=== PATIENT | male | born 1995 | race Caucasian/White ===

== ENCOUNTER 2023-12-06 05:47 | Observation (INO) ==
[2023-12-06 06:30] LABS: Basophils # (auto) 0.05 K/uL (0.00-0.20); Basophils % (auto) 0.3 %; Eosinophils # (auto) 0.05 K/uL (0.00-0.50); Eosinophils % (auto) 0.3 %; Hematocrit (blood only) 49.1 % (42.0-52.0); Hemoglobin 17.1 g/dl (14.0-18.0); Immature Granulocytes % (auto) 0.6 %; Lymphocytes # (auto) 0.84 K/uL (1.20-3.40); Lymphocytes % (auto) 4.9 %; Mean Corpuscular Hemoglobin 29.6 pg (25.0-34.0); Mean Corpuscular Hgb Conc 34.8 g/dL (32.0-36.0); Mean Corpuscular Volume 84.9 fL (80.0-100.0); Mean Platelet Volume 10.6 fL (9.4-12.4); Monocytes # (auto) 1.19 K/uL (0.11-0.59); Monocytes % (auto) 6.9 %; Platelet Count 273 K/uL (130-400); RDW Coefficient of Variation 13.2 % (11.5-14.5); RDW Standard Deviation 41.1 fL (36.4-46.3); Red Blood Count 5.78 M/uL (4.70-6.10); White Blood Count 17.13 K/ul (4.8-10.8)
[2023-12-06] MEDS: ONDANSETRON INJ 2 MG/ML 2 ML VIAL IV STA ×2 (06:34→12:45)
[2023-12-06] MEDS: KETOROLAC TROMETHAMINE 15 MG/ML VIAL IV ONE (06:34)
[2023-12-06 06:35] LABS: Appearance Urine Turbid (Clear); Bacteria Urine Automated None Seen (None Seen); Bilirubin Urine Negative (Negative); Blood Urine Negative (Negative); Cast Urine Automated 0-2 /lpf (0-2); Color Urine Yellow; Epithelial Cell Urine Auto 0-2 /hpf (0-2); Glucose Urine UA Negative (Negative); Ketones Urine Negative (Negative); Leukocyte Esterase Urine Negative (Negative); Nitrite Urine Negative (Negative); Protein Urine Negative (Negative); Specific Gravity Urine 1.015 (1.000-1.030); Urobilinogen Urine Negative (Negative); WBC Urine Automated 0-5 /hpf (0-5); pH Urine >= 9.0 (4.5-7.5)
[2023-12-06] MEDS: SODIUM CHLORIDE 0.9% 1,000 ML IV ONE ×2 (06:35→19:01)
[2023-12-06] MEDS: HYDROmorphone INJ 0.5 MG/0.5 ML SYR IV STA ×3 (06:41→12:45)
[2023-12-06 06:49] LABS: Albumin Globulin Ratio 1.9 (0.9-2); Albumin Level 5.3 gm/dl (3.4-5.0); BUN Creatinine Ratio 15.8 (10-20); Bilirubin,Total 1.1 mg/dl (0.2-1.0); Calcium 10.3 mg/dl (8.6-10.3); Creatinine Clr Calc Pharmacy 106.9 ml/min; Est GFR (African American) 115.1 ml/min; Est GFR (Non-African American) 99.3 ml/min; Globulin 2.8 gm/dl (2.5-4.0); Total Protein 8.1 gm/dl (6.0-8.3)
--- NOTE | 2023-12-06 07:14 | Emergency Department Note ---
Impression & Plan Acute appendicitis ED Provider Note CHIEF COMPLAINT: Abdominal pain HISTORY OF PRESENT ILLNESS: This 28-year-old male patient with past medical history of seasonal allergies, mood disorder presents emergency department with complaints of right lower abdominal pain that radiates into the flank. He is concerned about the level of pain that he is having. He thought maybe he was constipated and took some laxatives yesterday. He does not feel that he can defecate but does have the urge. Patient denies any difficulty with urination. He states the pain comes and goes. He denies fever and vomiting. REVIEW OF SYSTEMS: A review of systems was performed with positives and pertinent negatives listed in the history of present illness. 10 systems were reviewed and are otherwise negative. ALLERGIES: see below MEDICATIONS: see below PMH: see below SOCIAL HISTORY: see below DDx: Diverticulitis, appendicitis, kidney stone, UTI, pyelonephritis among others. PHYSICAL EXAM: Vital signs reviewed. General: Well-appearing 28-year-old male, in no significant distress. HEENT: No scleral icterus, PERRLA, neck supple. Moist mucous membranes. Cardiovascular: Regular rate and rhythm, no extra sounds. Pulmonary: Clear to auscultation bilaterally, normal work of breathing. Abdomen: Soft, mild tenderness to palpation of the right lower quadrant, no rebound or guarding, nondistended, positive bowel sounds. Minimal CVA tenderness bilaterally. Musculoskeletal: Atraumatic, no peripheral edema. Neurologic: Patient awake alert and oriented x 3, speech is clear Skin: Warm, dry, no rash EMERGENCY DEPARTMENT COURSE/MDM: This patient was evaluated and appeared to be in no significant distress. IV access was obtained and laboratory work was drawn. The patient was placed on the surveillance monitor noted to be in a normal sinus rhythm. Laboratory work indicates a leukocytosis of 17. UA reveals trace RBCs. There is no evidence of infection. CT imaging of the abdomen pelvis is consistent with a severe appendicitis. Patient was medicated with IV Zosyn and general surgery was contacted. Patient is aware of the plan and agrees. MONITORING: An order for cardiac monitoring was placed and the patient is noted to be in a normal sinus rhythm at 86 beats per minute. RADIOLOGY: CT imaging of the abdomen pelvis per radiology is consistent with severe appendicitis without perforation. DISPOSITION: Home Past Med/Surg History Social History Smoking Status: Current every day smoker Tobacco Type: Smokeless Tobacco (Dip or Chew) Preferred Language: Yemeni Feels Safe at Home: Yes Allergies Allergies Allergy/AdvReac Type Severity Reaction Status Date / Time No Known Allergies Allergy Verified 12/06/23 06:13 Home Meds Home Medications Medication Instructions Recorded Confirmed cetirizine 10 mg tablet (Zyrtec) 10 mg PO QAM 12/06/23 12/06/23 citalopram 10 mg tablet 10 mg PO QAM 12/06/23 12/06/23 kgzejwvx-pbdhrpek-gwxhk acid 400 1 tab PO QAM 12/06/23 12/06/23 mcg-vit K 20 mcg-lycop 300 mcg tablet Results & Data (ED) Vital Signs Vital Signs - 24 hr 12/06/23 05:55 12/06/23 06:09 12/06/23 06:38 Temperature 36.8 C Temperature Source Temporal Artery Scan Pulse Rate 62 65 Pulse Rate [Apical] 60 Pulse Rate from SpO2 Sensor Pulse Rhythm [Apical] Regular Pulse Strength [Apical] Normal Respiratory Rate 18 19 Respiratory Effort / Characteristics Non-Labored Spontaneous Non-Labored Spontaneous Respiratory Depth Normal Normal Respiratory Pattern Regular Regular Blood Pressure 148/99 H Blood Pressure [Left Arm] 134/91 Blood Pressure Mean 115 Blood Pressure Mean [Left Arm] 105 Blood Pressure Position [Left Arm] Sitting Pulse Oximetry 100 97 Oxygen Delivery Method Room Air Room Air Sepsis Recent Fever Within 48 Hours No Sepsis New/Unexplained Change in Mental Status N/A Sepsis Action Taken by Nursing No Action Required 12/06/23 07:08 12/06/23 07:30 12/06/23 08:00 Temperature Temperature Source Pulse Rate 64 64 56 L Pulse Rate [Apical] Pulse Rate from SpO2 Sensor 63 56 L Pulse Rhythm [Apical] Pulse Strength [Apical] Respiratory Rate 18 19 17 Respiratory Effort / Characteristics Respiratory Depth Respiratory Pattern Blood Pressure 131/82 132/83 130/77 Blood Pressure [Left Arm] Blood Pressure Mean 98 99 94 Blood Pressure Mean [Left Arm] Blood Pressure Position [Left Arm] Pulse Oximetry 100 100 100 Oxygen Delivery Method Room Air Room Air Room Air Sepsis Recent Fever Within 48 Hours Sepsis New/Unexplained Change in Mental Status Sepsis Action Taken by Nursing 12/06/23 08:30 12/06/23 09:00 12/06/23 10:30 Temperature Temperature Source Pulse Rate 56 L 54 L Pulse Rate [Apical] 52 L Pulse Rate from SpO2 Sensor 62 54 L Pulse Rhythm [Apical] Pulse Strength [Apical] Respiratory Rate 12 17 20 Respiratory Effort / Characteristics Non-Labored Spontaneous Respiratory Depth Normal Respiratory Pattern Blood Pressure 124/81 128/75 Blood Pressure [Left Arm] 137/92 Blood Pressure Mean 95 92 Blood Pressure Mean [Left Arm] 107 Blood Pressure Position [Left Arm] Pulse Oximetry 100 99 100 Oxygen Delivery Method Room Air Room Air Room Air Sepsis Recent Fever Within 48 Hours Sepsis New/Unexplained Change in Mental Status Sepsis Action Taken by Nursing 12/06/23 11:15 12/06/23 11:31 Temperature Temperature Source Pulse Rate 63 86 Pulse Rate [Apical] Pulse Rate from SpO2 Sensor Pulse Rhythm [Apical] Pulse Strength [Apical] Respiratory Rate 20 Respiratory Effort / Characteristics Respiratory Depth Respiratory Pattern Blood Pressure 128/85 Blood Pressure [Left Arm] Blood Pressure Mean 99 Blood Pressure Mean [Left Arm] Blood Pressure Position [Left Arm] Pulse Oximetry 99 Oxygen Delivery Method Room Air Sepsis Recent Fever Within 48 Hours Sepsis New/Unexplained Change in Mental Status Sepsis Action Taken by Custodial Medications Current Medication List: was personally reviewed by me Laboratory Data Attestation: I reviewed the patient's lab results. 12/06/23 06:05 12/06/23 06:05 Lab Results 12/06/23 12/06/23 Range/Units 06:00 06:05 WBC 17.13 H (4.8-10.8) K/ul RBC 5.78 (4.70-6.10) M/uL Hgb 17.1 (14.0-18.0) g/dl Hct 49.1 (42.0-52.0) % MCV 84.9 (80.0-100.0) fL MCH 29.6 (25.0-34.0) pg MCHC 34.8 (32.0-36.0) g/dL RDW Std Deviation 41.1 (36.4-46.3) fL RDW Coeff of [place] 13.2 (11.5-14.5) % Plt Count 273 (130-400) K/uL MPV 10.6 (9.4-12.4) fL Immature Gran % (Auto) 0.6 % Neut % (Auto) 87.0 % Lymph % (Auto) 4.9 % [place] % (Auto) 6.9 % Eos % (Auto) 0.3 % Baso % (Auto) 0.3 % Neut # (Auto) 14.90 H (1.40-6.50) K/uL Lymph # (Auto) 0.84 L (1.20-3.40) K/uL [place] # (Auto) 1.19 H (0.11-0.59) K/uL Eos # (Auto) 0.05 (0.00-0.50) K/uL Baso # (Auto) 0.05 (0.00-0.20) K/uL Immature Gran # (Auto) 0.10 (0.01-0.20) K/uL Sodium 140 (136-145) mmol/L Potassium 4.0 (3.5-5.1) mmol/L Chloride 105 (98-107) mmol/L Carbon Dioxide 25 (21-32) mmol/L Anion Gap 10 (3-11) BUN 16 (6-23) mg/dl Creatinine 1.01 (0.6-1.4) mg/dl Est Cr Clr Drug Dosing 106.9 ml/min Est GFR ( Amer) 115.1 ml/min Est GFR (Non-Af Amer) 99.3 ml/min BUN/Creatinine Ratio 15.8 (10-20) Glucose 123 H (70-99(Fasting)) mg/dl Calcium 10.3 (8.6-10.3) mg/dl Total Bilirubin 1.1 H (0.2-1.0) mg/dl AST 26 (13-39) U/L ALT 37 (7-52) U/L Alkaline Phosphatase 111 H (34-104) U/L Total Protein 8.1 (6.0-8.3) gm/dl Albumin 5.3 H (3.4-5.0) gm/dl Globulin 2.8 (2.5-4.0) gm/dl Albumin/Globulin Ratio 1.9 (0.9-2) Lipase 32 (11-82) U/L Urine Color Yellow Urine Appearance Turbid A (Clear) Urine pH >= 9.0 H (4.5-7.5) Ur Specific [place] 1.015 (1.000-1.030) Urine Protein Negative (Negative) Urine Glucose (UA) Negative (Negative) Urine Ketones Negative (Negative) Urine Blood Negative (Negative) Urine Nitrite Negative (Negative) Urine Bilirubin Negative (Negative) Urine Urobilinogen Negative (Negative) Ur Leukocyte Esterase Negative (Negative) Urine WBC (Auto) 0-5 (0-5) /hpf Urine RBC (Auto) 3-5 H (0-2) /hpf U Hyaline Cast (Auto) 0-2 (0-2) /lpf U Epithel Cells (Auto) 0-2 (0-2) /hpf Urine Bacteria (Auto) None Seen (None Seen) Administered Medications Discontinued Medications Hydromorphone HCl (Hydromorphone Inj 0.5 Mg/0.5 Ml Syr) 0.5 mg IV NOW STA Stop: 12/06/23 06:30 Last Admin: 12/06/23 06:41 Dose: 0.5 mg Documented By: VIDAL Hydromorphone HCl (Hydromorphone Inj 0.5 Mg/0.5 Ml Syr) 0.5 mg IV NOW STA Stop: 12/06/23 10:31 Last Admin: 12/06/23 10:43 Dose: 0.5 mg Documented By: АНДРЕЙ Sodium Chloride (Nss) 1,000 mls @ 999 mls/hr IV .Q1H1M ONE Stop: 12/06/23 07:27 Last Infusion: 12/06/23 07:59 Dose: Infused Documented By: АНДРЕЙ Admin: 12/06/23 06:35 Dose: 999 mls/hr Documented By: VIDAL Piperacillin Sod/Tazobactam Sod (Zosyn) 4.5 gm in 100 mls @ 200 mls/hr IV NOW ONE Stop: 12/06/23 08:30 Last Infusion: 12/06/23 08:55 Dose: Infused Documented By: АНДРЕЙ Admin: 12/06/23 08:19 Dose: 200 mls/hr Documented By: АНДРЕЙ Ketorolac Tromethamine (Ketorolac Tromethamine 15 Mg/Ml Vial) 10 mg IV NOW ONE Stop: 12/06/23 06:30 Last Admin: 12/06/23 06:34 Dose: 10 mg Documented By: VIDAL Ondansetron HCl (Ondansetron Inj 2 Mg/Ml 2 Ml Vial) 4 mg IV NOW STA Stop: 12/06/23 06:30 Last Admin: 12/06/23 06:34 Dose: 4 mg Documented By: VIDAL Imaging Data Radiologist's Impression: Abdomen/Pelvis CT 12/06/23 06:29 CT SCAN OF THE ABDOMEN AND PELVIS WITHOUT IV CONTRAST CLINICAL HISTORY: Right flank pain. COMPARISON STUDY: No priors. TECHNIQUE: CT scan of the abdomen and pelvis is performed from the lung bases to the proximal femora. Images are reviewed in the axial, sagittal, and coronal planes. IV contrast was not administered for this examination. A dose lowering technique was utilized adhering to the principles of ALARA. CT DOSE: 722.85 mGy.cm FINDINGS: Lung bases: The heart is normal in size and without pericardial effusion. The lung bases are clear. Liver: The unenhanced liver is normal in size, contour, and attenuation. There is no intrahepatic biliary ductal dilatation. Gallbladder: Unremarkable. Spleen: Normal in size and attenuation. Pancreas: Unremarkable. Adrenal glands: Unremarkable. Kidneys: The unenhanced kidneys are normal in size and without hydronephrosis. There is a 5 mm nonobstructing calculus in the left lower pole. There are 2 punctate nonobstructing calculi in the right lower pole. No ureteral stone is seen. There is no evidence of contour deforming renal mass lesion. Abdominal vasculature: The abdominal aorta is normal in course and caliber. Bowel: No bowel obstruction is seen. The appendix is markedly dilated and fluid-filled, measuring up to 2.5 cm diameter. This is best seen on axial image #236. There is periappendiceal inflammation and fluid consistent with acute appendicitis. There is no clear evidence of perforation. No organized fluid collection is seen to suggest abscess on this unenhanced examination. Calcified appendicoliths are seen at the appendiceal tip. Mild wall thickening of the adjacent ilium is likely reactive. Peritoneum: No intraperitoneal free air is seen. There is a small volume of free fluid in the pelvis. There is a small fat-containing umbilical hernia. Lymphadenopathy: Mildly enlarged right lower quadrant mesenteric lymph nodes measure up to 1.4 cm in length. These are likely reactive. Pelvic viscera: The bladder, prostate, and seminal vesicles are normal as visualized. There is evidence of previous left inguinal herniorrhaphy. Skeletal structures: No lytic or blastic lesions are seen. IMPRESSION: 1. Severe acute appendicitis. 2. There is no evidence of abscess or perforation on this unenhanced examination. 3. Enlarged right lower quadrant mesenteric lymph nodes and free fluid in the pelvis are likely reactive. 4. Bilateral nephrolithiasis. 5. Additional findings as above. ACT 112: Negative or not required by law. Electronically signed by: Eleazar Mcknight M.D. 12/06/2023 7:43 AM Discharge Plan Visit Data Chief Complaint: Abdominal Pain Stated Complaint: ABD PAIN ED Provider: Melyssa Lindsey Discharge Problem: Acute appendicitis Forms Stand Alone Forms: [facility] Prescriptions Prescriptions: No Action cetirizine [Zyrtec] 10 mg Tablet 10 mg PO QAM citalopram 10 mg tablet 10 mg PO QAM Men's Multivitamin 400-20-300 mcg Tablet 1 tab PO QAM Referrals Referrals: Samir Bourne MD [Primary Care Provider] -
--- NOTE | 2023-12-06 07:44 | CT Scan Report ---
CT SCAN OF THE ABDOMEN AND PELVIS WITHOUT IV CONTRAST CLINICAL HISTORY: Right flank pain. COMPARISON STUDY: No priors. TECHNIQUE: CT scan of the abdomen and pelvis is performed from the lung bases to the proximal femora. Images are reviewed in the axial, sagittal, and coronal planes. IV contrast was not administered for this examination. A dose lowering technique was utilized adhering to the principles of ALARA. CT DOSE: 722.85 mGy.cm FINDINGS: Lung bases: The heart is normal in size and without pericardial effusion. The lung bases are clear. Liver: The unenhanced liver is normal in size, contour, and attenuation. There is no intrahepatic layo iary ductal dilatation. Gallbladder: Unremarkable. Spleen: Normal in size and attenuation. Pancreas: Unremarkable. Adrenal glands: Unremarkable. Kidneys: The unenhanced kidneys are normal in size and without hydronephrosis. There is a 5 mm nonobs tructing calculus in the left lower pole. There are 2 punctate nonobstructing calculi in the right lo wer pole. No ureteral stone is seen. There is no evidence of contour deforming renal mass lesion. Abdominal vasculature: The abdominal aorta is normal in course and caliber. Bowel: No bowel obstruction is seen. The appendix is markedly dilated and fluid-filled, measuring up to 2.5 cm diameter. This is best seen on axial image #236. There is periappendiceal inflammation and fluid consistent with acute appendicitis. There is no clear evidence of perforation. No organized fl uid collection is seen to suggest abscess on this unenhanced examination. Calcified appendicoliths ar e seen at the appendiceal tip. Mild wall thickening of the adjacent ilium is likely reactive. Peritoneum: No intraperitoneal free air is seen. There is a small volume of free fluid in the pelvis. There is a small fat-containing umbilical hernia. Lymphadenopathy: Mildly enlarged right lower quadrant mesenteric lymph nodes measure up to 1.4 cm in length. These are likely reactive. Pelvic viscera: The bladder, prostate, and seminal vesicles are normal as visualized. There is eviden ce of previous left inguinal herniorrhaphy. Skeletal structures: No lytic or blastic lesions are seen. IMPRESSION: 1. Severe acute appendicitis. 2. There is no evidence of abscess or perforation on this unenhanced examination. 3. Enlarged right lower quadrant mesenteric lymph nodes and free fluid in the pelvis are likely react tova. 4. Bilateral nephrolithiasis. 5. Additional findings as above. ACT 112: Negative or not required by law. Electronically signed by: Eleazar Mcknight M.D. 12/06/2023 7:43 AM
[2023-12-06] MEDS: PIPERACILLIN/TAZOBACTAM 4.5 GM/100 ML BAG IV ONE (08:19)
--- NOTE | 2023-12-06 09:49 | History & Physical Report ---
Date of Service December 06, 2023 Assessment & Plan (1) Acute appendicitis: Plan: This is a 28yM with no significant PMH who presents to the [facility] ED on 12/06/23 with complaints of abdominal pain that stated yesterday and worsened overnight. Pain mostly located in the RLQ and was associated with nausea/vomiting. Due to symptoms he came into the ER where he underwent a CT a/p that revealed findings concerning for acute appendicitis. WBC 17. Vitals are stable and patient is afebrile. On exam abdomen is soft and TTP in the RLQ. Imaging, history, exam all consistent with acute appendicitis. Discussed options and patient agrees to surgical intervention. Will keep NPO, with IVF, and give pre-op abx. Will plan on laparoscopic appendectomy with Dr. Ramey today. as above. discussed options/risks ( bleeding/infection/blood clots/injury to other organs etc...) questions answered. will proceed with lap appendectomy today. History of Present Illness Primary Care Provider: Samir Bourne MD This is a 28yM with no significant PMH who presents to the [facility] ED on 12/06/23 with complaints of abdominal pain. Patient states his pain started yesterday and he felt like he was constipated. He states the pain worsened throughout the day but that it did not limit him from going to work then coming home to do some yard work. He said it actually went away temporarily, but after eating frozen pizza for dinner around 830pm the pain returned. He states the pain started around his belly button region and has since relocated more so to the RLQ. Severity of pain an 8/10, associated with some nausea and 1x bout of emesis. Due to symptoms he came into the ER where he underwent a CT a/p that revealed findings concerning for acute appendicitis. Patient denies fevers/chills, CP/SOB, or change in bowel habits. He is voiding well. Past surgical history includes and open left inguinal hernia repair. He is suppose to go on a camping trip this wknd. Allergies Allergy/AdvReac Type Severity Reaction Status Date / Time No Known Allergies Allergy Verified 12/06/23 06:13 Home Medications Medication Instructions Recorded Confirmed Type cetirizine 10 mg tablet (Zyrtec) 10 mg PO QAM 12/06/23 12/06/23 History citalopram 10 mg tablet 10 mg PO QAM 12/06/23 12/06/23 History elwtwaiy-zhuxctdx-vilgo acid 400 1 tab PO QAM 12/06/23 12/06/23 History mcg-vit K 20 mcg-lycop 300 mcg tablet Past Med/Surg History Social History Smoking Status: Current every day smoker Tobacco Type: Smokeless Tobacco (Dip or Chew) Preferred Language: Argentine Feels Safe at Home: Yes Review of Systems Constitutional: no fever and no chills Respiratory: no dyspnea Cardiovascular: no chest pain Gastrointestinal: + abdominal pain (RLQ), + nausea and + v omiting; no bloating and no change in bowel habits Genitourinary: no problem reported Physical Exam Physical Exam: awake/alert, no distress Constitutional: well developed and well nourished Respiratory: normal respiratory effort Cardiovascular: Rate/Rhythm: regular rhythm Gastrointestinal (Abdomen): Inspection/Auscultation: abdomen not distended Percussion/Palpation: + abdomen tender (ttp RLQ) and abdomen soft; no guarding Results & Data Results & Data Vital Signs (Past 12 Hours) Vital Signs Temp Pulse Pulse Resp BP BP Pulse Ox 12/06/23 08:30 56 L 12 124/81 100 12/06/23 08:00 56 L 17 130/77 100 12/06/23 07:30 64 19 132/83 100 12/06/23 07:08 64 18 131/82 100 12/06/23 06:38 60 19 134/91 97 12/06/23 06:09 65 12/06/23 05:55 98.2 F 62 18 148/99 H 100 O2 Del Method 12/06/23 08:30 Room Air 12/06/23 08:00 Room Air 12/06/23 07:30 Room Air 12/06/23 07:08 Room Air 12/06/23 06:38 Room Air 12/06/23 06:09 12/06/23 05:55 Room Air Diagnostic Findings CT SCAN OF THE ABDOMEN AND PELVIS WITHOUT IV CONTRAST CLINICAL HISTORY: Right flank pain. COMPARISON STUDY: No priors. TECHNIQUE: CT scan of the abdomen and pelvis is performed from the lung bases to the proximal femora. Images are reviewed in the axial, sagittal, and coronal planes. IV contrast was not administered for this examination. A dose lowering technique was utilized adhering to the principles of ALARA. CT DOSE: 722.85 mGy.cm FINDINGS: Lung bases: The heart is normal in size and without pericardial effusion. The lung bases are clear. Liver: The unenhanced liver is normal in size, contour, and attenuation. There is no intrahepatic biliary ductal dilatation. Gallbladder: Unremarkable. Spleen: Normal in size and attenuation. Pancreas: Unremarkable. Adrenal glands: Unremarkable. Kidneys: The unenhanced kidneys are normal in size and without hydronephrosis. There is a 5 mm nonobstructing calculus in the left lower pole. There are 2 punctate nonobstructing calculi in the right lower pole. No ureteral stone is seen. There is no evidence of contour deforming renal mass lesion. Abdominal vasculature: The abdominal aorta is normal in course and caliber. Bowel: No bowel obstruction is seen. The appendix is markedly dilated and fluid-filled, measuring up to 2.5 cm diameter. This is best seen on axial image #236. There is periappendiceal inflammation and fluid consistent with acute appendicitis. There is no clear evidence of perforation. No organized fluid collection is seen to suggest abscess on this unenhanced examination. Calcified appendicoliths are seen at the appendiceal tip. Mild wall thickening of the adjacent ilium is likely reactive. Peritoneum: No intraperitoneal free air is seen. There is a small volume of free fluid in the pelvis. There is a small fat-containing umbilical hernia. Lymphadenopathy: Mildly enlarged right lower quadrant mesenteric lymph nodes measure up to 1.4 cm in length. These are likely reactive. Pelvic viscera: The bladder, prostate, and seminal vesicles are normal as visualized. There is evidence of previous left inguinal herniorrhaphy. Skeletal structures: No lytic or blastic lesions are seen. IMPRESSION: 1. Severe acute appendicitis. 2. There is no evidence of abscess or perforation on this unenhanced examination. 3. Enlarged right lower quadrant mesenteric lymph nodes and free fluid in the pelvis are likely reactive. 4. Bilateral nephrolithiasis. 5. Additional findings as above. ACT 112: Negative or not required by law. PG Care Time/CCT Total # of Minutes Spent Total Time Spent with Patient: Total time spent is greater than 50% in coordination of care (as documented) at patient's floor/unit and/or counseling patient: Coding Level of Care Code 33164 INT INP/OBS CARE 2/55MIN Diagnoses Acute appendicitis K35.80
[2023-12-06] MEDS ORDERED: LIDOCAINE 2% 2 ML VIAL/AMP(20MG/ML) INFIL ONE (12:44)
[2023-12-06] MEDS ORDERED: fentaNYL citrate PF 100 MCG/2 ML VIAL ONE (12:44)
[2023-12-06] MEDS ORDERED: PROPOFOL IV EMULSION 10 MG/ML 20 ML VIAL IV ONE (12:44)
[2023-12-06] MEDS ORDERED: ROCURONIUM BROMIDE 10 MG/ML 5 ML VIAL IV ONE ×2 (12:44→13:43)
[2023-12-06] MEDS ORDERED: MIDAZOLAM HCL 1 MG/ML 2ML VIAL ONE (12:44)
--- NOTE | 2023-12-06 12:55 | Anesthesiology Consultation ---
Date of Service December 06, 2023 Assessment & Plan Chart Review Chart Review: Acceptable Risk for Surgery and Patient NOT seen in Pre Admission Testing Consults Requested none History Surgery Operation Date: 12/06/23 12:20 Proposed Procedures p Laparoscopic Appendectomy - John Ramey DO Height/Weight Height: 5 ft 9 in Weight: 73.8 kg Allergies Allergy/AdvReac Type Severity Reaction Status Date / Time No Known Allergies Allergy Verified 12/06/23 06:13 Medications Home Medications Medication Instructions Recorded Confirmed Last Taken cetirizine 10 mg tablet (Zyrtec) 10 mg PO QAM 12/06/23 12/06/23 12/05/23 citalopram 10 mg tablet 10 mg PO QAM 12/06/23 12/06/23 12/05/23 ysxncnxq-uhybyyvu-hzdna acid 400 1 tab PO QAM 12/06/23 12/06/23 12/05/23 mcg-vit K 20 mcg-lycop 300 mcg tablet NPO Date Last Intake of Fluids: 12/06/23 Time Last Intake of Fluids: 04:00 Last Intake of Fluids Comment: water Date Last Intake of Solids: 12/05/23 Time Last Intake of Solids: 20:30 Last Intake of Solids Comment: frozen pizza Social History Smoking Status: Current every day smoker Review of Systems Constitutional: no fever and no chills Respiratory: no dyspnea Cardiovascular: no chest pain Gastrointestinal: + abdominal pain (RLQ), + nausea and + vomiting; no bloating and no change in bowel habits Genitourinary (Male): no problem reported Physical Exam Vital Signs Last Vital Signs Temp 36.8 C 12/06/23 05:55 Pulse 86 12/06/23 11:31 Resp 20 12/06/23 11:31 BP 128/85 12/06/23 11:31 Pulse Ox 99 12/06/23 11:31 O2 Del Method Room Air 12/06/23 11:31 Constitutional well developed and well nourished Respiratory normal respiratory effort Cardiovascular Rate/Rhythm: regular rhythm Gastrointestinal (Abdomen) Inspection/Auscultation: abdomen not distended Percussion/Palpation: + abdomen tender (ttp RLQ) and abdomen soft; no guarding Testing Laboratory Results 12/06/23 06:05 12/06/23 06:05 Urine Color Yellow 12/06/23 06:00 Urine Appearance Turbid (Clear) A 12/06/23 06:00 Urine pH >= 9.0 (4.5-7.5) H 12/06/23 06:00 Ur Specific [place] 1.015 (1.000-1.030) 12/06/23 06:00 Urine Protein Negative (Negative) 12/06/23 06:00 Urine Glucose (UA) Negative (Negative) 12/06/23 06:00 Urine Ketones Negative (Negative) 12/06/23 06:00 Urine Nitrite Negative (Negative) 12/06/23 06:00 Ur Leukocyte Esterase Negative (Negative) 12/06/23 06:00 Urine WBC (Auto) 0-5 /hpf (0-5) 12/06/23 06:00 Urine RBC (Auto) 3-5 /hpf (0-2) H 12/06/23 06:00 U Hyaline Cast (Auto) 0-2 /lpf (0-2) 12/06/23 06:00 U Epithel Cells (Auto) 0-2 /hpf (0-2) 12/06/23 06:00 Urine Bacteria (Auto) None Seen (None Seen) 12/06/23 06:00
[2023-12-06] MEDS: LACTATED RINGER'S 1,000 ML IV SCH ×2 (13:14→17:22)
[2023-12-06] MEDS ORDERED: ePHEDrine sulfate 50 MG/ML AMP IV PRN (13:20)
[2023-12-06] MEDS ORDERED: ATROPINE SULFATE 0.1 MG/ML 10ML SYR IV PRN (13:20)
[2023-12-06] MEDS ORDERED: DROPERIDOL 5 MG/2 ML VIAL IV PRN (13:20)
[2023-12-06] MEDS ORDERED: SUCCINYLCHOLINE CHLORIDE 20 MG/ML 10 ML VIAL IV ONE (13:43)
[2023-12-06] MEDS ORDERED: ONDANSETRON INJ 2 MG/ML 2 ML VIAL ONE (13:43)
[2023-12-06] MEDS ORDERED: SUGAMMADEX SODIUM 200 MG/2 ML VIAL IV ONE (14:41)
[2023-12-06] MEDS: BUPIVACAINE/EPINEPHRINE 0.5% MPF 1:200,000 10 ML VIAL ONE (14:42)
[2023-12-06] MEDS ORDERED: KETOROLAC 30 MG/ML VIAL ONE (14:54)
--- NOTE | 2023-12-06 15:11 | Operative Report ---
PG Post Operative Report Pre & Post Diagnosis Operation Date: 12/06/23 12:20 Pre-Op Diagnosis: appendicitis Post-Op Diagnosis: appendicitis I identified the patient and participated in the time-out.: Yes Procedure Operation Date: 12/06/23 12:20 Actual Procedures p Laparoscopic Appendectomy(Not Applicable) - John Ramey DO Surgeon John Ramey DO Washery Boss shilo Hinds Estimated Blood Loss 15 Findings Consistent with Post-Op Diagnosis Specimens appendix Description of Procedure After informed consent was obtained the patient was taken to the operating room and placed in supine position. After successful intubation a Flowers catheter was placed and the left arm was tucked. I began by making a periumbilical incision with an 11 blade scalpel and carried this down through the soft tissue using electrocautery. The anterior rectus fascia was opened using electrocautery and 2 #0 Vicryl stay sutures were placed. The peritoneum was elevated using hemostats and incised under direct vision using a Metzenbaum scissor. A finger sweep was performed. A 12 mm Franco trocar was placed and the abdomen was insufflated to 18 mmHg. A laparoscope was inserted and the abdomen was examined in 360. A suprapubic 5 mm port and a left lower quadrant 12 mm port were placed under direct vision. The patient was air planed to the left as well as placed in a slight Trendelenburg position. We began by looking in the right lower quadrant. We were able to readily identify the appendix and it was grossly inflamed. It had not perforated. The appendix had walled itself off using a portion of the sigmoid colon as well as mesentery of the terminal ileum. When I peeled away the bowel and mesentery we entered a pocket of abscess. This was immediately suctioned out. Again the appendix was severely inflamed. I had to use primarily blunt dissection to separate it from surrounding tissue. Eventually I was able to find its base with the cecum. I was able to use primarily blunt dissection to pull the appendix away from the right lower quadrant sidewall. Next I made a window in the mesentery near the base of the c ecum. I was then able to use a EUGENIA purple cartridge stapler to transect the appendiceal base followed by a brown 60 cartridge for the mesentery. It was then placed into an Endo Catch bag and removed from the camera port site. I realized after doing so that I had actually transected the appendix and a residual tip of the appendix was still in the abdomen. I was able to grasp this and elevate it. I used a harmonic scalpel to take down the residual mesentery. The second specimen which contained the tip of the appendix was placed into a separate bag and removed. We thoroughly irrigated the right lower quadrant as well as the pelvis. There was adequate hemostasis. I ran the small bowel backwards from the terminal ileum for about 6 feet all of which was normal. All the peritoneal surfaces were normal. Small/ large bowel, liver, stomach etc. all appeared grossly normal. I decided to place a drain. A 10 flat Danilo-Johnson drain was brought in through the left lower quadrant incision and placed in the pelvis. It was secured to the skin using 0 Vicryl. We did a final irrigation and then removed all the trochars and desufflated the abdomen. The fascia of the camera port as well as the left lower quadrant were closed using 0 Vicryl in [id number] fashion. Wounds were all irrigated and closed using 4-0 Monocryl. Marcaine was injected around them for postoperative analgesia and skin glue used as a dressing. The patient was awakened extubated and transferred to recovery in stable condition. My physician's assistant offset press operator was present through the entire case. She assisted with prepping the patient and helped with exposure for port placement, helped run the camera and helped with fascial/wound closure at the end of the procedure as well as dressing placement. I attest to the content of the Intraoperative Record and any orders documented therein. Any exceptions are noted below. I attest to the content of the Intraoperative Record and any orders documented therein. Any exceptions are noted below.
--- NOTE | 2023-12-06 15:47 | Anesthesiology Progress Note ---
Date of Service December 06, 2023 Anesthesia Post Procedure Vital Signs Vital Signs: Temp Pulse Pulse Pulse Resp BP BP 12/06/23 15:35 79 16 114/69 12/06/23 15:25 84 17 121/72 12/06/23 15:18 37.0 C 82 15 116/72 12/06/23 13:07 37.0 C 73 18 12/06/23 12:55 65 18 147/100 H 12/06/23 11:31 86 20 128/85 12/06/23 11:15 63 12/06/23 10:30 52 L 20 137/92 12/06/23 09:00 54 L 17 128/75 12/06/23 08:30 56 L 12 124/81 12/06/23 08:00 56 L 17 130/77 12/06/23 07:30 64 19 132/83 12/06/23 07:08 64 18 131/82 12/06/23 06:38 60 19 134/91 12/06/23 06:09 65 12/06/23 05:55 36.8 C 62 18 148/99 H BP Pulse Ox O2 Del Method O2 Flow Rate 12/06/23 15:35 96 Room Air 12/06/23 15:25 100 Oxymask 4 12/06/23 15:18 100 Oxymask 6 12/06/23 13:07 171/92 H 100 Room Air 12/06/23 12:55 100 Room Air 12/06/23 11:31 99 Room Air 12/06/23 11:15 12/06/23 10:30 100 Room Air 12/06/23 09:00 99 Room Air 12/06/23 08:30 100 Room Air 12/06/23 08:00 100 Room Air 12/06/23 07:30 100 Room Air 12/06/23 07:08 100 Room Air 12/06/23 06:38 97 Room Air 12/06/23 06:09 12/06/23 05:55 100 Room Air Pain Intensity Right Lower Abdomen: Pain Intensity: 2 Abdomen: Pain Intensity: 2 Transfer of Care Handoff Completed per policy Notes Mental Status: alert / awake / arousable and participated in evaluation Nausea / Vomiting: adequately controlled Pain: adequately controlled Airway Patency, RR, SpO2: stable & adequate BP & HR: stable & adequate Hydration State: stable & adequate Anesthetic Complications: no major complications apparent and Pt Satisfied with anesthetic care
[2023-12-06] MEDS: HYDROmorphone INJ 2 MG/ML SYR/VIAL IV PRN (15:50)
[2023-12-06] MEDS ORDERED: LACTATED RINGER'S 1,000 ML IV SCH (16:36)
[2023-12-06] MEDS: ACETAMINOPHEN 1,000 MG/100 ML VIAL IV SCH (17:23)
[2023-12-06] MEDS: PIPERACILLIN/TAZOBACTAM 4.5 GM in DEXTROSE 5% MINI-B 100 ML IV SCH (17:51)
[2023-12-06] MEDS: oxyCODONE HCL IR 5 MG TAB (IMMEDIATE RELEASE) PO PRN (19:06)
[2023-12-06] MEDS: MoRPHine SULFATE 4 MG/ML 1 ML CARP\\VIAL IV PRN (22:49)
[2023-12-07] MEDS: MoRPHine SULFATE 2 MG/ML CARP IV PRN (03:25)
--- NOTE | 2023-12-07 06:04 | Surgery Progress Note ---
Date of Service December 07, 2023 Assessment & Plan (1) Acute appendicitis: Plan: Status post laparoscopic appendectomy on 12/06/2023 (postop day #1) Continue analgesics Provide antiemetics Maintain patient on clear liquid diet for the present time. Consideration be given to advancing as appetite improves and bowel function returns Maintain patient on IV fluids until oral intake can be advanced Continue antibiotics in the form of Zosyn Continue JEN drain to suction Mobilize as able Check a.m. labs when available If patient remains hospitalized should consider adding subcutaneous heparin or Lovenox for DVT prevention as above. doing as expected. wbc normalized but h/h dropped....partially post op partially dilutional. keep JEN. recheck labs tomorrow. not quite ready for d/c. can have regular diet. Admission and Anticipated Discharge Date Admission Date: December 06, 2023 Subjective Patient is currently resting comfortably in bed. This provider was called by nursing last night the patient was having some dysuria and inability to void. Patient offered straight cath which she declined at the time and his urine i ssues have since resolved. He notes he does not have much of an appetite this morning but denies any nausea or vomiting. He has not had a bowel movement or passed flatus since his surgery. He denies shortness of breath. Physical Exam Gastrointestinal (Abdomen): Abdomen is soft and nondistended. Surgical incisions are clean, dry, intact. Patient has tenderness near his surgical incisions which is appropriate. JEN drain is in place draining serosanguineous fluid and has drained 45 cc since his surgical procedure. Results & Data Vital Signs (Past 12 Hours) Vital Signs Temp Pulse Resp BP Pulse Ox O2 Del Method 12/07/23 04:18 37.0 C 83 18 123/78 97 Room Air 12/07/23 00:21 37.3 C 101 H 18 131/84 99 Room Air 12/06/23 19:28 36.6 C 81 18 133/87 100 Room Air 12/06/23 18:24 36.8 C 81 16 93/50 L 97 Room Air PG Care Time/CCT Total # of Minutes Spent Total Time Spent with Patient: Total time spent is greater than 50% in coordination of care (as documented) at patient's floor/unit and/or counseling patient: Coding Level of Care Code 03814 Post Operative Follow-Up Diagnoses Acute appendicitis K35.80
[2023-12-07 07:11] LABS: Basophils # (auto) 0.02 K/uL (0.00-0.20); Basophils % (auto) 0.2 %; Hematocrit (blood only) 37.8 % (42.0-52.0); Immature Granulocytes # (auto) 0.04 K/uL (0.01-0.20); Immature Granulocytes % (auto) 0.4 %; Lymphocytes # (auto) 0.47 K/uL (1.20-3.40); Lymphocytes % (auto) 4.5 %; Mean Corpuscular Hemoglobin 29.7 pg (25.0-34.0); Mean Corpuscular Hgb Conc 34.4 g/dL (32.0-36.0); Mean Corpuscular Volume 86.5 fL (80.0-100.0); Mean Platelet Volume 10.5 fL (9.4-12.4); Monocytes # (auto) 0.91 K/uL (0.11-0.59); Monocytes % (auto) 8.6 %; Neutrophils % (auto) 86.3 %; Platelet Count 161 K/uL (130-400); RDW Coefficient of Variation 13.4 % (11.5-14.5); RDW Standard Deviation 42.2 fL (36.4-46.3); Red Blood Count 4.37 M/uL (4.70-6.10); White Blood Count 10.54 K/ul (4.8-10.8)
[2023-12-07] MEDS: oxyCODONE HCL IR 5 MG TAB (IMMEDIATE RELEASE) PO PRN (07:19)
[2023-12-07 07:35] LABS: BUN Creatinine Ratio 8.6 (10-20); Calcium 8.2 mg/dl (8.6-10.3); Creatinine Clr Calc Pharmacy 116.1 ml/min; Est GFR (African American) 127.2 ml/min; Est GFR (Non-African American) 109.8 ml/min; Potassium 3.7 mmol/L (3.5-5.1)
[2023-12-07] MEDS: CETIRIZINE HCL 10 MG TABLET PO SCH (09:03)
[2023-12-07] MEDS: CITALOPRAM 20 MG TAB PO SCH (09:03)
[2023-12-07] MEDS: ONDANSETRON INJ 2 MG/ML 2 ML VIAL IV PRN (17:05)
--- NOTE | 2023-12-08 05:04 | Surgery Progress Note ---
Date of Service December 08, 2023 Assessment & Plan (1) Acute appendicitis: Plan: Status post laparoscopic appendectomy on 12/06/2023 (postop day #2) Continue analgesics as needed Provide antiemetics if needed Continue current dietpatient is on solid food Maintain patient on IV fluids until oral intake can be advanced Continue antibiotics in the form of Zosyn while hospitalized Continue JEN drain to suction Encourage ambulation Leukocytosis noted at time of admission which normalized on postop day #1. Patient was noted to have a febrile episode yesterday at approximate 5:00 PM which has resolved and has not recurred. A CBC has been planned for this morning which is pending; will check once available to evaluate for recurrence of leukocytosis. If patient has any additional febrile episodes consideration can also be given to checking urinalysis due to urinary issues he experienced following his surgery. If hemoglobin and hematocrit are stable on this morning's CBC and patient remains hospitalized as above. doing well. ok for d/c. will keep JEN and plan to remove next week. instructions given. Admission and Anticipated Discharge Date Admission Date: December 06, 2023 Subjective Patient is currently resting comfortably in bed. He denies any cough or shortness of breath. He notes that his abdominal pain has improved. He had his diet advanced to solid which he tolerated without worsening abdominal pain. He also denies any nausea or vomiting. He has had no further urinary issues since his initial postoperative night. He does note that overall he feels better than yesterday. He is passing flatus but has not had a bowel movement. The patient says that he has felt feverish over the past 24 hours. Patient is currently afebrile but he has had 1 recorded fever yesterday at approximately 5:00 PM. Physical Exam Gastrointestinal (Abdomen): Abdomen is soft and nondistended. Patient has appropriate tenderness near surgical incisions which are clean, dry, and intact. A JEN drain is in place draining serosanguineous fluid and has drained approximately 85 cc over the past 24 hours. Bowel sounds are present. Results & Data Vital Signs (Past 12 Hours) Vital Signs Temp Pulse Resp BP Pulse Ox O2 Del Method 12/08/23 00:24 37.1 C 12/07/23 19:15 37.3 C 79 19 118/74 97 Room Air 12/07/23 17:15 38.1 C H 95 H 16 133/77 98 Room Air PG Care Time/CCT Total # of Minutes Spent Total Time Spent with Patient: Total time spent is greater than 50% in coordination of care (as documented) at patient's floor/unit and/or counseling patient: Coding Level of Care Code 88243 Post Operative Follow-Up Diagnoses Acute appendicitis K35.80
[2023-12-08 06:30] LABS: Basophils # (auto) 0.03 K/uL (0.00-0.20); Basophils % (auto) 0.5 %; Eosinophils # (auto) 0.07 K/uL (0.00-0.50); Eosinophils % (auto) 1.1 %; Hematocrit (blood only) 35.7 % (42.0-52.0); Hemoglobin 12.2 g/dl (14.0-18.0); Immature Granulocytes # (auto) 0.03 K/uL (0.01-0.20); Immature Granulocytes % (auto) 0.5 %; Lymphocytes # (auto) 0.93 K/uL (1.20-3.40); Lymphocytes % (auto) 14.5 %; Mean Corpuscular Hgb Conc 34.2 g/dL (32.0-36.0); Mean Corpuscular Volume 87.9 fL (80.0-100.0); Monocytes # (auto) 0.98 K/uL (0.11-0.59); Monocytes % (auto) 15.3 %; Neutrophils # (auto) 4.37 K/uL (1.40-6.50); Neutrophils % (auto) 68.1 %; Platelet Count 158 K/uL (130-400); RDW Coefficient of Variation 13.3 % (11.5-14.5); RDW Standard Deviation 43.1 fL (36.4-46.3); Red Blood Count 4.06 M/uL (4.70-6.10); White Blood Count 6.41 K/ul (4.8-10.8)
--- OUTSIDE RECORDS SUMMARY | 2023-12-08 06:48 | External Medical Summary | Summary of Care ---
Author Name Unknown Organization [facility] Address [address] [place] [address] Phone [phone] Care Team Providers Care Heel Varnisher Name Role Phone Samir Bourne MD Primary Care Provide r Encounter Details Date Type Department Care Team (Late st Contact Info) Description 06/14/2023 Result Scan Unspecified Department <No scans attached> Allergies No known active allergiesdocumented as of this encounter (statuses as of 06/20/2023) Medications Medication Sig Dispensed Refills Start Date End Date Status Citalopram Hydrobromide 10 MG Oral Tablet (CeleXA)Indications:An xiety TAKE ONE TABLET BY MOUTH EVERY MORNING 90 Tablet 2 11/26/2022 Active documented as of this encounter (statuses as of 06/20/2023) Active Problems Problem Noted Date Diagnosed Date Anxiety 01/22/2022 Other allergic rhinitis 02/26/2002 Overview: ICD-10 update of inactive term Tobacco use disorder documented as of this encounter (statuses as of 06/20/2023) Resolved Problems Problem Noted Date Diagnosed Date Resolved Date Routine child health exam 08/27/2007 Cough 02/26/2002 05/25/2014 documented as of this encounter (statuses as of 06/20/2023) Immunizations Name Administration Dates Next Due COVID-19 mRNA, LNP-s, No Pre serve, 2-Dose Series (Moderna) 12/20/2020,11/22/2020 H1N1 2009 Influenza, Intranasal 06/06/2009 HPV Vaccine, 4-Valent 05/25/2014,12/26/2012,09/06 Meningococcal Conjugate Vacc ine (Menactra/Menveo) 09/24/2011,08/27/2007 SEASONAL INFLUENZA, PF, 6 M & Above, IM , (FLULAVAL or FLUZONE) 06/09/2022,06/24/2019,06/03/2018 Seasonal Influenza, Quadriva lent, No Preserve, IM 05/06/2015 Seasonal Influenza, Split, I IV3, With Preserve, Inj 05/25/2014,04/24/2013,06/03/2012,05/16,06/02/2010,05/02/2009,06/17/2008 ,06/24/2007,06/06/2006 TDAP (age 10 and older)(Boostrix) 10/20/2021 TDAP (age 11 and older)(Adacel) 08/10/2009 Varicella Vaccine (Chicken Pox) 06/17/2008 documented as of this encounter Social History Tobacco Use Types Packs/Day Years Used Date Smoking Tobacco: Former Cigarettes 0.3 2 S tarted: 2011 Smokeless Tobacco: Current Chew Comments:.25 can a day Alcohol Use Standard Drinks/Week Comments Yes 0 (1 standard drink = 0.6 oz pur e alcohol) PHQ-2 Answer Date Recorded PHQ-2 Score 0 06/24/2019 Hunger Vital Sign Answer Date Recorded Within the past 12 months, y ou worried that your food would run out before you got the money to buy more. Never true 01/25/20 23 Within the past 12 months, t he food you bought just didn't last and you didn't have money to get more. Never true 01/24/2023 Sex and Gender Information Value Date Recorded Sex Assigned at Male 01/24/2023 5:30 PM EDT Gender Identity Male 01/24/2023 5:30 PM EDT Sexual Orientation Straight 01/24/2023 5: 34 PM EDT Job Start Date Occupation Industry Not on file Not on file Not on file documented as of this encounter Plan of Treatment Upcoming Encounters Date Type Department Care Team (Late st Contact Info) Description 01/27/2024 5:40 PM EDT Office Visit Family Medicine [address] [place] [phone] Samir Bourne MD [address] [place] [address] [place] [phone] Health Maintenance Due Date Last Done Comments HIV Screening 2008 Hepatitis C Screening 2011 Depression Screening 06/24/2020 06/24/2019 COVID-19 Vaccine ( season) 2023 12/20/2020, 11/22/2020 Influenza Vaccine (FLU shot) (#1) 2023 06/09/2022, 06/24/2019, 06/03/2018, Additional history exists DTaP,Tdap,and Td Vaccines (8 - Td or Tdap) 10/21/2031 10/20/2021, 08/10/2009, 03/09/2005, Additional history exists Hepatitis B Completed 06/15/1994, 11/04, 1993 MENINGOCOCCAL (MENACTRA/MENVEO) Completed 09/24/2011, 08/27/2007 GARDASIL-HPV IMMUNIZATION SERIES Completed 05/25/2014, 12/26/2012, 09/24/2011 Pneumococcal Vaccine: Pediatrics (0 to 5 Years) and At-Risk Patients (6 to 64 Years) Aged Out No longer eligible based on patient's age to complete this topic documented as of this encounter Medical Devices Implanted Type Area Oil Well Fishing Tool Operator Device Identifier Shelf Expiration Date Model / Serial / Lot Mesh Plug Medium [id number] - [id number] Implanted:Qty: 1 on 11/03/2021 by Shira Beck MD at OR [facility] Left: Groin CR BARD : DAVOL 03/01/2026 [id number] / / [id number] documented as of this encounter Procedures Procedure Name Priority Date/Time Associated Diagnosis Comments OUTSIDE LAB RESULTS 06/14/2023 documented in this encounter Results * OUTSIDE LAB RESULTS (06/14/2023) 06/14/2023 No Physician Data Unknown LABORATORY documented in this encounter Care Teams Heel Varnisher Relationship Specialty Start Date End Date Samir Bourne MD [address] [place] [address] [place] [phone] PCP - General Family Medicine 10/19/21 documented as of this encounter
--- OUTSIDE RECORDS SUMMARY | 2023-12-08 06:48 | External Medical Summary | Summary of Care ---
Author Name Unknown Organization [facility] Address [address] [place] [address] Phone [phone] Care Team Providers Care Steel Fabricator Name Role Phone Samir Bourne MD Primary Care Provide r Reason for Visit * Reason Comments eRx-Medication Refill Encounter Details Date Type Department Care Team (Late st Contact Info) Description 09/16/2023 Refill Family Medicine [address] [phone] Samir Bourne MD [address] [place] [address] [place] [address] Anxiety Allergies No known active allergiesdocumented as of this encounter (statuses as of 09/17/2023) Medications Medication Sig Dispensed Refills Start Date End Date Status Citalopram Hydrobromide 10 MG Oral Tablet (CeleXA)Indication s:Anxiety TAKE ONE TABLET BY MOUTH EVERY MORNING 90 Tablet 2 09/17/2023 Active Citalopram Hydrobromide 10 MG Oral Tablet (CeleXA)Indication s:Anxiety TAKE ONE TABLET BY MOUTH EVERY MORNING 90 Tablet 2 11/26/2022 09/17/2023 Discontinued documented as of this encounter (statuses as of 09/17/2023) Active Problems Problem Noted Date Diagnosed Date Anxiety 01/22/2022 Other allergic rhinitis 02/26/2002 Overview: ICD-10 update of inactive term Tobacco use disorder documented as of this encounter (statuses as of 09/17/2023) Resolved Problems Problem Noted Date Diagnosed Date Resolved Date Routine child health exam 08/27/2007 Cough 02/26/2002 05/25/2014 documented as of this encounter (statuses as of 09/17/2023) Immunizations Name Administration Dates Next Due COVID-19 mRNA, LNP-s, No Pre serve, 2-Dose Series (Moderna) 12/20/2020,11/22/2020 H1N1 2009 Influenza, Intranasal 06/06/2009 HPV Vaccine, 4-Valent 05/25/2014,12/26/2012,09/06 Meningococcal Conjugate Vacc ine (Menactra/Menveo) 09/24/2011,08/27/2007 Seasonal Influenza, PF, 6 M & above, IM , (FluLaval or Fluzone) 06/09/2022,06/24/2019,06/03/2018 Seasonal Influenza, Quadriva lent, No Preserve, [...] on file documented as of this encounter Miscellaneous Notes * Telephone Encounter - Enid Cobb [facility] - 09/17/2023 3:40 PM ESTSigned Prescriptions: Disp Refills Citalopram Hydrobromide 10 MG Oral Tablet *90 Tab*2 Sig: TAKE ONE TABLET BY MOUTH EVERY MORNINGAuthorizing Provider: Landon BOURNE User: ENID COBB documented in this encounter Plan of Treatment Upcoming Encounters Date Type Department Care Team (Late st Contact Info) Description 01/27/2024 7:40 AM EDT Office Visit Family Medicine [address] [phone] Samir Bourne MD [address] [place] [address] [place] [phone] Health Maintenance Due Date Last Done Comments [...] this encounter Medical Devices Implanted Type Area Finisher Card Tender Device Identifier Shelf Expiration Date Model / Serial / Lot Mesh Plug Medium [id number] - [id number] Implanted:Qty: 1 on 11/03/2021 by Shira Beck MD at [facility] Left: Groin LIZZY BARD : HARMAN 03/01/2026 [id number] / / [id number] documented as of this encounter Visit Diagnoses Diagnosis Anxiety Anxiety state, unspecified documented in this encounter Care Teams Steel Fabricator Relationship Specialty Start Date End Date Samir Bourne MD [address] [place] [address] [place] [phone] PCP - General Family Medicine 10/19/21 documented as of this encounter
== END 2023-12-08 11:07 | disposition home or self-care (01) ==
LOC: ED 05:47 → 3N 05:47